=== PATIENT | male | born 1985 | race Caucasian/White ===

== ENCOUNTER 2022-02-22 14:20 | Emergency (ER) | payer SELFPAY ==
[2022-02-22 15:04] VITALS: BP 133/89; PULSE 72; RESP 16; TEMP 36.8; O2SAT 99
--- NOTE | 2022-02-22 15:22 | CT_ITS ---
WS: [id number] CT HEAD TECHNIQUE: Noncontrast CT of the head obtained from the skullbase to the vertex. CLINICAL INFORMATION: headache COMPARISON: None. DLP: 1057.[address] scans at [facility] use at least one of these dose optimization techniques: automated e xposure control; mA and/or kV adjustment per patient size (includes targeted exams where dose is matc hed to clinical indication); or iterative reconstruction. FINDINGS: No evidence of intracranial hemorrhage or mass effect. Ventricular system and basal cisterns are pack nt. Mild small vessel changes with mild parenchymal volume loss. Prior postoperative changes LEFT frontal craniotomy and LEFT inferior frontal craniotomy. Additional RIGHT parietal craniotomy. Resection cavity is the underlying LEFT frontal and RIGHT parietal lobes w ith cystic encephalomalacia. Ex vacuo dilatation LEFT frontal horn. Paranasal sinuses and mastoid air cells are well aerated. .Normal visualized soft tissues. CT/CT head wo con* [id number] IMPRESSION: 1. No evidence of intracranial hemorrhage or mass effect. 2. Multiple prior craniotomies with resection cavity in the underlying LEFT fr ontal lobe and RIGHT parietal lobes with cystic encephalomalacia. 3. No hydrocephalus. 4. No acute intracranial findings.
[2022-02-22 19:32] VITALS: BP 132/93; PULSE 58; RESP 16; O2SAT 100
--- NOTE | 2022-02-22 19:40 | ED_ITS ---
HPI - Headache General: Chief Complaint: Headache Stated Complaint: Severe Headaches Time Seen by Provider: 02/22/22 19:28 History of Present Illness: Patient is a 37-year-old male comes to the ED with headache. Patient started having bad headaches approximately a week ago. Headaches are on and off and vary in intensity. Today's headache is mild and he rates it currently a 1 out of 10. Patient has a history of brain tumors and has had prior craniotomies done. He also has a history of seizures but denies any recent seizure activity for over a year. He takes Keppra daily. Patient's main concern was to get checked out to make sure he does not have any reoccurring tumors that are causing his headaches. Denies any history of migraines. Denies any photophobia, nausea/vomiting, vision changes, numbness tingling or weakness to 1 side of body or face. Associated symptoms: Deny chest pain, fever(s), nausea, rash or vomiting Review of Systems Const: Denies: fever(s), chills or fatigue Eyes: Denies: change in vision or eye discomfort ENMT: Denies: throat pain, odynophagia, nasal discharge or nasal congestion Card: Denies: chest pain, palpitations, edema, swelling of feet/ankles, dyspnea on exertion or orthopnea Resp: Denies: dyspnea, productive cough or non-productive cough GI: Denies: abdominal pain, nausea, vomiting, diarrhea, constipation or hematochezia : Denies: flank pain, difficulty urinating, dysuria or hematuria Musc: Denies: neck pain, back pain or extremity swelling Skin/Breast: Denies: rash or new lesions Neuro: Reports: headache(s); Denies: numbness in extremities or weakness in extremities [facility] ED PFSH: Medical History No pertinent family history Seizures Surgical History H/O craniotomy Physical Exam Const: COMMON NORMALS: no acute distress, patient oriented x3, healthy appearing and alert GENERAL APPEARANCE: cooperative and comfortable HENMT: COMMON NORMALS: normocephalic HEAD & SCALP: normocephalic MOUTH: Normal oral and palatal mucosa present THROAT: posterior oropharynx normal and uvula midline Eye: COMMON NORMALS: Equal, round and reactive pupils present and EOMs intact bilaterally GENERAL EYE: appearance normal, both eyes and all related structures PUPIL: Yes Equal, round and reactive pupils present Neck/C-Spine: COMMON NORMALS: supple GENERAL: Yes normal visual inspection Lymph: LYMPHATIC: no lymphadenopathy noted Resp: COMMON NORMALS: normal respiratory effort, No retractions, No use of accessory muscles and clear to auscultation bilaterally AUSCULTATION: clear to auscultation bilaterally Cardio: COMMON NORMALS: regular rate, regular rhythm, S1 normal heart sound present, S2 normal heart sound present, No gallops present (Cardio), No clicks present (Cardio), No murmurs present (Cardio) and Peripheral pulses 2+ throughout RATE: regular rate RHYTHM: regular rhythm HEART SOUNDS: S1 normal heart sound present and S2 normal heart sound present PERIPHERAL PU LSES: Peripheral pulses 2+ throughout GI: COMMON NORMALS: Normal to inspection, nondistended, normoactive bowel sounds present, Soft to palpation, non-tender and no masses PALPATION: Yes Soft to palpation : COMMON NORMALS: Yes no CVA tenderness BLADDER/KIDNEY EXAM: Yes no CVA tenderness Back/Pelvis: COMMON NORMALS: no CVA tenderness Extremity: GENERAL: Yes normal exam except as noted Neuro: COMMON NORMALS: patient oriented x3, CN's II-XII intact bilaterally, moves all extremities, no focal motor deficits and no sensory deficits noted SENSORIUM/ORIENTATION: Yes alert COORDINATION/BALANCE: [id number] test normal SPEECH: speech normal SENSORY EXAM: Yes extremities (intact) MOTOR EXAM: 5/5 motor strength present throughout COORDINATION: [id number] test normal Skin: COMMON NORMALS: no rashes or lesions noted GENERAL SKIN EXAM: no rashes or lesions noted and dry skin Course Vital Signs: Vital signs: Vital Signs Temperature 98.3 F 02/22/22 15:04 Pulse Rate 58 L 02/22/22 19:32 Respiratory Rate 16 02/22/22 19:32 Blood Pressure 132/93 02/22/22 19:32 Pulse Oximetry 100 02/22/22 19:32 Oxygen Delivery Me thod 02/22/22 19:32 MDM - Headache Medical Decision Making Patient is a 37-year-old male comes to the ED with headache. Patient started having bad headaches approximately a week ago. Headaches are on and off and vary in intensity. Today's headache is mild and he rates it currently a 1 out of 10. Patient has a history of brain tumors and has had prior craniotomies done. He also has a history of seizures but denies any recent seizure activity for over a year. He takes Keppra daily. Patient's main concern was to get checked out to make sure he does not have any reoccurring tumors that are causing his headaches. Denies any history of migraines. Denies any photophobia, nausea/vomiting, vision changes, numbness tingling or weakness to 1 side of body or face. Vitals are stable. Neuro exam shows no deficits and the rest of exam is unremarkable. Patient appears nontoxic in no acute distress or pain. Head CT showed no acute findings such as mass or hemorrhaging. Patient was stable for discharge home and diagnosed with a headache and told to follow- up with PCP in the next week for reevaluation. Return ED precautions given. Patient understood agree with plan. Lab Data Radiology Impressions Head CT 02/22/22 15:22 IMPRESSION: 1. No evidence of intracranial hemorrhage or mass effect. 2. Multiple prior craniotomies with resection cavity in the underlying LEFT frontal lobe and RIGHT parietal lobes with cystic encephalomalacia. 3. No hydrocephalus. 4. No acute intracranial findings. Discharge Plan Discharge Patient Disposition: Home Clinical Impression: Headache Qualifiers: Headache type: unspecified Headache chronicity pattern: acute headache Intractability: not intractable Qualified Code(s): R51.9 - Headache, unspecified Condition: Stable Discharge Orders: Discharge ED (Routine); Ordered 02/22/22 Ordered By: Bradley Rivera Discharge Diet: Regular Discharge Activity: Increase activity as tolerated Patient Instructions: Acute Headache (DC) Activity Restrictions/Additional Instructions: Follow-up with medical provider as directed in the next 7 to 10 days for reevaluation. Continue taking all home medications as previously prescribed. Take [id number] Tylenol or Motrin for any reoccurring headaches. Return to the ER or your medical provider if condition worsens. Please read and understand discharge instructions. Thank you for choosing [facility] for your healthcare needs today. Please realize this is an emergency room and that we are providing you with a medical screening exam and this may not be complete and all inclusive of all the testing and or work up that you may need to determine your ailment or severity of your illness. It is very important that you follow up as instructed or that you return to the Emergency Department should you have concerns or if your condition changes or worsens in any way. Coding Level of Care Code ED Barrel Coater for [facility] Exam Comprehensive
== END 2022-02-22 19:49 | disposition home or self-care (01) ==
PROVIDERS: Emergency Provider Physician Assistant
DX: R51.9 Headache, unspecified (principal)
CPT/HCPCS: 70450; 99284